=== PATIENT | female | born 1955 | race Caucasian/White ===

== ENCOUNTER 2018-12-31 05:03 | Inpatient (IN) | payer OTHER ==
[~2018-12-31] VITALS: Ht 165.1 cm; Wt 57.6 kg
[2018-12-31] MEDS ORDERED: ACETAMINOPHEN 325 MG TABLET ONE (05:58)
[2018-12-31] MEDS ORDERED: oxyCODONE HCL SR 10MG TAB.SR.12H PO ONE (05:58)
[2018-12-31] MEDS ORDERED: CELECOXIB 100 MG CAPSULE ONE (05:58)
[2018-12-31] MEDS ORDERED: BACITRACIN 50000 UNITS/VIAL ONE (06:20)
[2018-12-31] MEDS ORDERED: ANESTHESIA TRAY IN PYXIS 1 EA TRAY MC ONE (06:20)
[2018-12-31] MEDS ORDERED: HYDROMORPHONE INJ 2 MG/ML DISP.SYRIN ONE (06:52)
[2018-12-31] MEDS ORDERED: MIDAZOLAM HCL 2 MG/2ML VIAL ONE (06:52)
[2018-12-31] MEDS ORDERED: ROCURONIUM BROMIDE 50 MG/5 ML ONE (06:53)
[2018-12-31] MEDS ORDERED: TRANEXAMIC ACID 3,000 MG in SODIUM CHLORIDE IRRIG SOLUTION 70 ML IR ONE (07:00)
[2018-12-31] MEDS ORDERED: FENTANYL PF 100MCG/2ML AMPUL ONE (08:11)
[2018-12-31] MEDS ORDERED: HYDROMORPHONE 1 MG/1 ML DISP.SYRIN ONE ×2 (08:29→08:41)
[2018-12-31 09:30] VITALS: BP 92/53
--- NOTE | 2018-12-31 09:30 | NUR ---
MS/PHOTOGRAPHER FINISH PATIENT ADMITTED FROM SURGERY DEPT. TRANSFERRED VIA BED ACCOMPANIED BY RN AND BUS AND TROLLEY INSPECTING DISPATCHER. REPORT GIVEN BY LARRY IRIZARRY. S/P TOTAL LEFT HIP ARTHROPLASTY DONE TODAY. TOLERATED WELL. SKIN ASSESSMENT DONE. NOTED WITH LEFT HIP SURGERY SITE WITH SURGICAL DRESSING CLEAN, DRY AND INTACT. CONTINENT OF BOWEL AND BLADDER. LEFT AC 18G IV SITE CLEAN DRY AND INTACT FLUSHES WELL. ALL NEEDS ATTENDED TO. DR SERRATO PAGED FOR ADMISSION ORDERS. WILL CONTINUE TO MONITOR TO ENSURE SAFETY.
[2018-12-31] MEDS ORDERED: LEVO137T2 PO (09:39)
[2018-12-31] MEDS ORDERED: OMEP20CA10 PO (09:39)
[2018-12-31] MEDS ORDERED: RIZA10TA27 PO (09:39)
[2018-12-31] MEDS ORDERED: EZET10TA14 PO (09:39)
[2018-12-31] MEDS ORDERED: ALBU18HF2 IH (09:39)
[2018-12-31] MEDS ORDERED: ESTR42.53 VG (09:39)
[2018-12-31] MEDS ORDERED: HYDR12.55 PO (09:39)
[2018-12-31] MEDS ORDERED: TRAM50TA2 PO (09:39)
[2018-12-31] MEDS ORDERED: LISI1TAB9 PO (09:39)
[2018-12-31] MEDS ORDERED: ONDA4TAB5 PO (09:39)
[2018-12-31] MEDS ORDERED: PROG100C15 PO (09:39)
[2018-12-31] MEDS ORDERED: RIVA10TA PO (09:39)
[2018-12-31] MEDS ORDERED: FLUO60CR TP (09:39)
[2018-12-31] MEDS ORDERED: HYDR-4384 PO (09:39)
[2018-12-31] MEDS ORDERED: TESTOSTERONE SL (09:42)
[2018-12-31] MEDS ORDERED: DULCOLAX 10 MG/SUPP.RECT RC PRN (10:00)
[2018-12-31] MEDS ORDERED: AMBIEN 5 MG TABLET PO PRN (10:00)
[2018-12-31] MEDS ORDERED: COLACE 250 MG CAPSULE PO PRN (10:00)
[2018-12-31] MEDS ORDERED: TYLENOL 650 MG TABLET PO PRN (10:00)
[2018-12-31] MEDS ORDERED: SENOKOT 8.6 MG TABLET PO PRN (10:00)
[2018-12-31] MEDS ORDERED: HYDROCODONE/APAP 5/325MG 1 EACH TABLET PO PRN ×3 (10:00→10:30)
[2018-12-31] MEDS ORDERED: IV LR 1000 ML 1,000 ML IV PRN (10:00)
[2018-12-31] MEDS ORDERED: HYDROMORPHONE 1 MG/1 ML DISP.SYRIN IV PRN (10:00)
[2018-12-31] MEDS ORDERED: ZOLPIDEM TARTRATE 5 MG TABLET PO PRN (10:30)
[2018-12-31] MEDS ORDERED: ACETAMINOPHEN 325 MG TABLET PO PRN (10:30)
[2018-12-31] MEDS ORDERED: MAG HYDROX/AL HYDROX/SIMETH 30 ML UDC PO PRN ×2 (10:30→16:00)
[2018-12-31] MEDS ORDERED: ONDANSETRON HCL/PF 4 MG/2 ML VIAL IVP PRN (10:30)
[2018-12-31] MEDS ORDERED: ENOXAPARIN SODIUM 40 MG/0.4 ML DISP.SYRIN SQ SCH (10:30)
[2018-12-31] MEDS ORDERED: MAGNESIUM HYDROXIDE 30 ML UDC PO PRN (10:30)
[2018-12-31] MEDS ORDERED: Z GUARD REMEDY 2 OZ OINT TP PRN (10:30)
[2018-12-31] MEDS: TRAMADOL HCL 50 MG TABLET PO SCH ×2 (12:45→17:00)
[2018-12-31] MEDS ORDERED: HYDROMORPHONE 1 MG/1 ML DISP.SYRIN SQ PRN (13:00)
[2018-12-31] MEDS ORDERED: ALBUTEROL FS 2.5 MG/3 ML VIAL.NEB NEB PRN (13:30)
[2018-12-31] MEDS: IV NS 0.9% 1,000 ML IV PRN (15:00)
[2018-12-31] MEDS: ANCEF 1 G in IV D5W 50 ML IV SCH ×2 (15:00→22:25)
[2018-12-31] MEDS ORDERED: MENTHOL/CETYLPYRD (CEPACOL) 1 LOZ LOZENGE PO PRN (15:30)
[2018-12-31] MEDS ORDERED: diphenhydrAMINE HCL 25 MG CAPSULE PO PRN (15:30)
[2018-12-31] MEDS ORDERED: HYDROCODONE/APAP 10/325MG 1 EA TABLET PO PRN (15:30)
[2018-12-31] MEDS ORDERED: CLONIDINE HCL 0.1 MG TABLET PO PRN (15:30)
[2018-12-31 15:33] VITALS: BP 92/53
[2018-12-31] MEDS ORDERED: DRONABINOL (2.5 MG) 2.5 MG CAPSULE PO ONE (15:48)
[2018-12-31 16:00] VITALS: BP 104/60
[2018-12-31] MEDS ORDERED: SCOPOLAMINE HBR 1 EA PATCH.TD72 TD ONE (16:00)
[2018-12-31] MEDS ORDERED: oxyCODONE IR immediate release 5 MG PO PRN ×2 (16:00)
[2018-12-31] MEDS: RIVAROXABAN 10 MG TABLET PO SCH (16:37)
[2018-12-31] MEDS ORDERED: DOCUSATE SODIUM 100 MG CAPSULE PO SCH (17:00)
--- NOTE | 2018-12-31 18:20 | NUR ---
MS/RN CLOSING NOTE PATIENT IN BED IN STABLE CONDITION. A/O X 4. NO SIGNS OF ACUTE DISTRESS. NO COMPLAIN OF PAIN OR DISCOMFORT. ALL NEEDS ATTENDED TO. CALL LIGHT WITHIN REACH. WILL ENDORSE TO NEXT SHIFT FOR CONTINUITY OF CARE.
--- NOTE | 2018-12-31 19:40 | NUR ---
RN OPENING NOTE RECEIVED PT. A/OX4. PT IS STABLE AND RESTING IN BED. NO S/S OF RESP DISTRESS, HOWEVER PT HAS C/O NON-PRODUCTIVE COUGH. PT IS S/P LEFT HIP ARTHROPLASTY PERFORMED BY MD SULTANA, CURRENTLY IN BED WITH HIP ABDUCTOR IN PLACE. IV ACCESS LOCATED ON LFA 18G INFUSING NS AT 75 CC/HR. SAFETY MEASURES IN PLACE, CALL LIGHT WITHIN REACH. WILL CONTINUE TO MONITOR.
[2018-12-31 20:00] VITALS: BP_SYST 109; BP_SYST 119; BP_DIAS 70; BP_DIAS 80
[2018-12-31] MEDS: HYDROMORPHONE 1 MG/1 ML DISP.SYRIN IV PRN (20:13)
[2018-12-31 21:31] VITALS: BP 119/80
[2018-12-31] MEDS: DRONABINOL (2.5 MG) 2.5 MG CAPSULE PO SCH (22:24)
--- NOTE | 2019-01-01 06:24 | NUR ---
RN CLOSING NOTE PT IN BED SLEEPING. NO S/S OF RESP DISTRESS/SOB. PT DOES NOT APPEAR TO BE IN PAIN. ABDUCTION PILLOW IN PLACE. PT PAIN MANAGED VIA IVP DIULADID AND PO MARINOL THROUGHOUT SHIFT. ALL PT NEEDS ANTICIPATED AND MET. SAFETY MEASURES IN PLACE, CALL LIGHT WITHIN REACH. WILL ENDORSE TO DAY SHIFT FOR BRITTA.
[2019-01-01 08:00] VITALS: BP 134/76
--- NOTE | 2019-01-01 08:00 | NUR ---
MS RN AM NOTE RECEIVED PT. A/OX4. PT IS STABLE AND RESTING IN BED. NO S/S OF RESP DISTRESS, HOWEVER PT HAS C/O NON-PRODUCTIVE COUGH. PT IS S/P LEFT HIP ARTHROPLASTY 12/31/18 PERFORMED BY MD SULTANA, CURRENTLY IN BED WITH HIP ABDUCTOR IN PLACE. IV ACCESS LOCATED ON LFA 18G INFUSING NS AT 75 CC/HR. SAFETY MEASURES IN PLACE, CALL LIGHT WITHIN REACH. WILL CONTINUE TO MONITOR.
[2019-01-01] MEDS: LEVOTHYROXINE SODIUM 137 MCG TABLET PO SCH (08:50)
[2019-01-01] MEDS: EZETIMIBE 10 MG TABLET PO SCH (08:50)
[2019-01-01] MEDS: TRAMADOL HCL 50 MG TABLET PO SCH ×3 (08:50→16:44)
[2019-01-01] MEDS: PANTOPRAZOLE 40 MG TABLET.DR PO SCH (08:50)
[2019-01-01] MEDS: ONDANSETRON HCL/PF 4 MG/2 ML VIAL IV PRN ×2 (08:57→14:23)
[2019-01-01] MEDS: HYDROMORPHONE 1 MG/1 ML DISP.SYRIN IV PRN ×3 (08:57→17:36)
[2019-01-01] MEDS ORDERED: PROGESTERONE,MICRONIZED 100 MG CAPSULE PO SCH ×2 (09:00)
[2019-01-01] MEDS ORDERED: RIVAROXABAN 10 MG TABLET PO SCH (09:00)
[2019-01-01] MEDS: IV NS 0.9% 1,000 ML IV PRN (09:06)
--- NOTE | 2019-01-01 10:00 | NUR ---
SEEN BY P.T./O.T. FOR EVAL AND AMBULATED WITH P.T. USING FWW.TOLERATED WELL.
[2019-01-01 12:13] LABS: BASOPHILS % (AUTO) 0.1 % (0.0-2.0); HEMATOCRIT 36 % (33-45); HEMOGLOBIN 12.2 g/dL (11.5-14.8); LYMPHOCYTES # (AUTO) 0.9 /CMM (0.8-4.8); LYMPHOCYTES % (AUTO) 11.9 % (20.0-44.0); MEAN CORPUSCULAR HGB CONC 34 g/dl (31.0-36.0); MEAN CORPUSCULAR VOLUME 94 fL (82-100); MONOCYTES # (AUTO) 0.7 /CMM (0.1-1.30); MONOCYTES % (AUTO) 9.2 % (2.0-12.0); NEUTROPHILS % (AUTO) 78.8 % (43.0-81.0); PLATELET COUNT (AUTO) 212 /CMM (150-450); RED BLOOD CELL COUNT(AUTO) 3.82 MIL/uL (4.0-5.2); WHITE BLOOD COUNT (AUTO) 7.6 K/uL (4.3-11.0)
[2019-01-01] MEDS: FLUOCINOLONE CREAM 0.01% TUBE TP SCH (12:18)
[2019-01-01 12:49] LABS: CALCIUM, SERUM 8.2 mg/dL (8.5-10.1); CREATININE 0.9 mg/dL (0.6-1.3); MAGNESIUM 1.8 mg/dL (1.8-2.4); PHOSPHORUS 2.9 mg/dL (2.5-4.9); POTASSIUM 3.7 mmol/L (3.5-5.1)
[2019-01-01 16:00] VITALS: BP 111/69
[2019-01-01] MEDS: RIVAROXABAN 10 MG TABLET PO SCH (16:46)
--- NOTE | 2019-01-01 18:58 | NUR ---
ASSISTED TO THE COMMODE SEVERAL TIMES WITH PAIN MGT USING DILAUDID 0.5 ML WITH ZOFRAN PRN EFFECTIVE.NO NAUSEA /VOMITING DURING THE SHIFT.CALL LIGHT PLACED WITHIN REACH.
--- NOTE | 2019-01-01 19:50 | NUR ---
MSRN ASSISTED TO BSC, GOOD URINE OUTPUT. SAFETRY PRECAUTIONS EMPHASIZED, WELL UNDERSTOOD. PAIN TOLERABLE OF THIS TIME.REMINDED TO CALL STAFF FOR ANY ASSISTANCE OR DISCOMFORTS, CALL LIGHT WITHIN REACH.
[2019-01-01 20:00] VITALS: BP 103/65
--- NOTE | 2019-01-01 22:35 | NUR ---
MSRN DUE MED ADMINISTERED. WENT DIMPLE K TO SLEEP
[2019-01-01] MEDS: DRONABINOL (2.5 MG) 2.5 MG CAPSULE PO SCH (22:47)
--- NOTE | 2019-01-02 04:33 | NUR ---
MSRN REMAINS UNCHANGED, CLOSELY WATCHED
--- NOTE | 2019-01-02 07:20 | NUR ---
MSRN FULLY AWAKE, EAGER TO GO HOME. ENDORSED TO INCOMING RN FOR CONTINUITY OF CARE.
--- NOTE | 2019-01-02 07:42 | NUR ---
RN OPENING NOTE PT WAS RECEIVED IN BED AT LOWEST AND LOCKED POSITION WITH SIDE RAILS UP X2, A/OX4, BREATHING EVEN AND UNLABORED ON RA, NO CURRENT COMPLAINT OF PAIN OR S/S OF ANY DISTRESS, IV IS PATENT AND INTACT, SAFETY PRECAUTION IN PLACE, CALL LIGHT WITHIN REACH, WILL MONITOR ACCORDINGLY.
[2019-01-02] MEDS: PANTOPRAZOLE 40 MG TABLET.DR PO SCH (07:58)
[2019-01-02] MEDS: LEVOTHYROXINE SODIUM 137 MCG TABLET PO SCH (07:58)
[2019-01-02] MEDS: HYDROMORPHONE 1 MG/1 ML DISP.SYRIN IV PRN ×2 (07:59→12:50)
[2019-01-02 08:34] LABS: BASOPHILS % (AUTO) 0.3 % (0.0-2.0); EOSINOPHILS % (AUTO) 0.2 % (0.0-6.0); HEMATOCRIT 37 % (33-45); HEMOGLOBIN 12.5 g/dL (11.5-14.8); LYMPHOCYTES # (AUTO) 0.9 /CMM (0.8-4.8); LYMPHOCYTES % (AUTO) 12.6 % (20.0-44.0); MEAN CORPUSCULAR HGB CONC 34 g/dl (31.0-36.0); MEAN CORPUSCULAR VOLUME 94 fL (82-100); MONOCYTES # (AUTO) 0.7 /CMM (0.1-1.30); MONOCYTES % (AUTO) 9.1 % (2.0-12.0); NEUTROPHILS # (AUTO) 5.9 /CMM (1.8-8.9); NEUTROPHILS % (AUTO) 77.8 % (43.0-81.0); PLATELET COUNT (AUTO) 192 /CMM (150-450); WHITE BLOOD COUNT (AUTO) 7.6 K/uL (4.3-11.0)
[2019-01-02] MEDS: TRAMADOL HCL 50 MG TABLET PO SCH (08:39)
[2019-01-02] MEDS: EZETIMIBE 10 MG TABLET PO SCH (08:39)
[2019-01-02] MEDS: FLUOCINOLONE CREAM 0.01% TUBE TP SCH (08:40)
[2019-01-02 08:55] VITALS: BP 101/63
[2019-01-02 08:58] LABS: CALCIUM, SERUM 8.6 mg/dL (8.5-10.1); CREATININE 0.9 mg/dL (0.6-1.3); MAGNESIUM 1.9 mg/dL (1.8-2.4); PHOSPHORUS 2.3 mg/dL (2.5-4.9); POTASSIUM 3.8 mmol/L (3.5-5.1)
[2019-01-02] MEDS ORDERED: K PHOS NEUTRAL 250 MG TABLET PO ONE (11:30)
--- NOTE | 2019-01-02 13:08 | NUR ---
DISCHARGE NOTE PT WAS DISCHARGED AT THIS TIME IN MEDICALLY STABLE CONDITION BACK HOME WITH HOME HEALTH. ALL DISCHARGE PAPERWORK, EXITCARE, AND BELONGINGS LIST WERE DISCUSSED, SIGNED AND HANDED TO THE PATIENT. IV AND ID BAND WERE REMOVED. PICTURE OF LEFT HIP INCISION WAS TAKEN AND PLACED IN THE CHART. ALL NEEDS WERE ATTENDED TO DURING HER STAY. PT WAS TAKEN DOWN BY WHEELCHAIR BY ME WHERE SHE LEFT IN HER PRIVATE CAR WITH HER FRIEND CARLIN HOLLAND AT THIS TIME
== END 2019-01-02 13:15 | disposition home health service (06) | DRG 470 ==
LOC: DS 05:03 → MED 08:57
PROVIDERS: ADMIT Specialist; ATTEND Internal Medicine
PROC: 0SRB0JZ Replacement of Left Hip Joint with Synthetic Substitute, Open Approach (ICD-10-PCS; principal; 2018-12-31)
DX: M16.12 Unilateral primary osteoarthritis, left hip (principal); E03.9 Hypothyroidism, unspecified; I10 Essential (primary) hypertension; E78.00 Pure hypercholesterolemia, unspecified; G43.909 Migraine, unspecified, not intractable, without status migrainosus; K21.9 Gastro-esophageal reflux disease without esophagitis; E78.5 Hyperlipidemia, unspecified; K58.9 Irritable bowel syndrome, unspecified; Z82.49 Family history of ischemic heart disease and other diseases of the circulatory system
CPT/HCPCS: 36415; 80048-TC; 80061-TC; 83735-TC; 84100-TC; 85025-TC; 86850-TC; 86921-TC; 87081-TC; 88305-TC; 88311-TC; 97110-TC; 97116-TC; 97530-TC; 97535-TC; A4217; A6209; A6402; G0378; J0690; J1100; J1170; J2250; J2405; J2704; J2710; J3010; J3490; J7030; J7060; J7120; Q0167